=== PATIENT | female | born 1995 | race Caucasian/White ===

== ENCOUNTER 2018-11-27 12:54 | Emergency (ER) | payer BC ==
[2018-11-27 13:00] VITALS: BP 116/84
--- NOTE | 2018-11-27 13:07 | EDPHY ---
H & P Stated Complaint: Growth on left shoulder blade Time Seen by Provider: 11/27/18 13:07 HPI/ROS: HPI: This is a 23-year-old female who presents with Chief Complaint: Growth on left shoulder blade Location: Left shoulder blade Quality: Growth Duration: 6 months Signs and Symptoms: no fever, no nausea, no vomiting, no diarrhea, no urinary symptoms, no chest pain, no shortness of breath, no wheezing, no cough, no sore throat, no neck stiffness, no joint pain, no swollen glands, no ear pain, no rash Timing: Slowly worsening Severity: Mild Context: Patient is originally from [facility], here visiting, presents with several day history of irritation and redness surrounding a growth that she has had on her left shoulder blade for the last 6 months. She denies that her bra strap is rubbing on the area. She has no warmth, wound discharge, fever. Patient has tried nothing for the symptoms. Modifying Factors: None Comment: ROS: A comprehensive 10 system review of systems is otherwise negative aside from elements mentioned in the history of present illness. MEDICAL/SURGICAL/SOCIAL HISTORY: Medical history: Generally healthy. Does not take any regular medications. Surgical history: Denies Social history: Student. Nonsmoker. Family history noncontributory. CONSTITUTIONAL: Nontoxic-appearing young adult white female, polite and cooperative, awake and alert, no obvious distress HEENT: Atraumatic and normocephalic, PERRL, EOMI. Nares patent; no rhinorrhea; no nasal mucosal edema. Tympanic membranes clear. Oropharynx clear, no exudate and moist pink mucosa. Airway patent. No lymphadenopathy. No meningismus. Cardiovascular: Normal S1/S2, regular rate, regular rhythm, without murmur rub or gallop. PULMONARY/CHEST: Symmetrical and nontender. Clear to auscultation bilaterally. Good air movement. No accessory muscle usage. ABDOMEN: Soft, nondistended, nontender, no rebound, no guarding, no peritoneal signs, no masses or organomegaly. No CVAT. EXTREMITIES: 2/2 pulses, strength 5/5, no deformities, no clubbing, no cyanosis or edema. NEUROLOGICAL: no focal neuro deficits. GCS 15. SKIN: Warm and dry, fluctuant 3 mm mobile lipoma subcutaneous on the left shoulder blade with minimal surrounding induration but no meet erythema. no warmth/discharge. Good capillary refill. Source: Patient Exam Limitations: No limitations - Personal History Current Tetanus Diphtheria and Acellular Pertussis (TDAP): Yes - Medical/Surgical History Hx Asthma: No Hx Chronic Respiratory Disease: No Hx Diabetes: No Hx Cardiac Disease: No Hx Renal Disease: No Hx Cirrhosis: No Hx Alcoholism: No Hx HIV/AIDS: No Hx Splenectomy or Spleen Trauma: No Other PMH: Heart palpitations. - Social History Smoking Status: Never smoked Constitutional: Initial Vital Signs Temperature (C) 36.6 C 11/27/18 12:58 Heart Rate 100 11/27/18 12:58 Respiratory Rate 16 11/27/18 12:58 Blood Pressure 116/84 H 11/27/18 12:58 O2 Sat (%) 97 11/27/18 12:58 O2 Delivery Mode Room Air Allergies/Adverse Reactions: amoxicillin Allergy (Verified 11/27/18 13:00) Penicillins Allergy (Verified 11/27/18 13:00) Home Medications: Medication Instructions Recorded Sulfamethox/Tmp 800/160 mg 1 tab PO BID #14 tab 11/27/18 [Bactrim Ds] Medical Decision Making ED Course/Re-evaluation: Vital signs reviewed and stable upon arrival. No fluctuance to I and D Penicillin allergy; will give a prescription for Bactrim and warm compresses with General surgery versus plastic surgery referral for removal. Differential Diagnosis: Differential diagnosis includes but is not limited to lipoma, cellulitis, abscess. Departure - Departure Disposition: Home, Routine, Self-Care Clinical Impression: Lipoma of skin and subcutaneous tissue of trunk, Skin induration Condition: Good Instructions: Lipoma (ED), Soft Tissue Mass (ED), Lipoma Removal (DC) Additional Instructions: Wash the site daily with mild soap and water; then pat dry. Take Tylenol 650 mg every 4 hours and/or Ibuprofen 600 mg every 8 hours with food as needed for pain. Apply warm compresses for 30 minutes at a time; 2-3 times per day for the next 1 -2 days. Take antibiotic as directed. Do not skip a dose. Follow up with General surgery/plastic surgery in 1-2 weeks if symptoms persist to discuss removal of lipoma. Referrals: ELFEGO RILEY [Other] - As per Instructions Prescriptions: Sulfamethox/Tmp 800/160 mg [Bactrim Ds] 1 tab PO BID #14 tab
== END 2018-11-27 13:27 | disposition home or self-care (01) ==
DX: D17.1 Benign lipomatous neoplasm of skin and subcutaneous tissue of trunk (principal); R23.4 Changes in skin texture